=== PATIENT | male | born 1970 | race Caucasian/White ===

== ENCOUNTER 2017-09-06 16:07 | Emergency (ER) | payer MEDICAID ==
[~2017-09-06] VITALS: Ht 185.4 cm; Wt 104.0 kg
[~2017-09-06 16:07] MED LIST: ARIP20TA4 PO; HYDR50TA65 PO; MULT-1179 PO; OXCA600T PO; PALI234D IM
[2017-09-06] MEDS ORDERED: CLIN-80 PO (16:49)
[2017-09-06 17:01] VITALS: BP 135/65
== END 2017-09-06 17:00 | disposition home or self-care (01) ==
LOC: ER 16:07
DX: K04.7 Periapical abscess without sinus (principal); F17.200 Nicotine dependence, unspecified, uncomplicated; Z60.2 Problems related to living alone; Z79.899 Other long term (current) drug therapy
CPT/HCPCS: 99283

== ENCOUNTER 2019-03-06 20:37 | Emergency (ER) | payer MEDICAID ==
[~2019-03-06] VITALS: Ht 185.4 cm; Wt 95.0 kg
[~2019-03-06 20:37] MED LIST changes: +CLIN-96 PO; -OXCA600T PO; +OXCA600T9 PO
[2019-03-06 20:50] VITALS: BP 136/77
[2019-03-06] MEDS ORDERED: PENI500T2 PO (21:54)
[2019-03-06] MEDS ORDERED: IBUP-1984 PO (21:54)
== END 2019-03-06 22:11 | disposition home or self-care (01) ==
LOC: ER 20:43
DX: K04.7 Periapical abscess without sinus (principal); K02.9 Dental caries, unspecified; K03.81 Cracked tooth; F20.9 Schizophrenia, unspecified; Z60.2 Problems related to living alone; Z79.899 Other long term (current) drug therapy
CPT/HCPCS: 99283

== ENCOUNTER 2019-06-24 19:44 | Emergency (ER) | payer MEDICAID ==
[~2019-06-24] VITALS: Ht 185.4 cm; Wt 97.0 kg
[~2019-06-24 19:44] MED LIST changes: +CLIN-90 PO; -CLIN-96 PO
[2019-06-24] MEDS ORDERED: PENI250T2 PO (20:34)
[2019-06-24] MEDS ORDERED: NAPR-56 PO (20:34)
== END 2019-06-24 20:51 | disposition home or self-care (01) ==
LOC: ER 19:45
DX: K08.89 Other specified disorders of teeth and supporting structures (principal); K00.7 Teething syndrome; F20.9 Schizophrenia, unspecified; Z60.2 Problems related to living alone; Z79.899 Other long term (current) drug therapy
CPT/HCPCS: 99283

== ENCOUNTER 2022-07-14 13:52 | Emergency (ER) | payer MEDICAID ==
[~2022-07-14] VITALS: Ht 185.4 cm; Wt 95.0 kg
[~2022-07-14 13:52] MED LIST changes: -CLIN-90 PO; +CLIN-97 PO
[2022-07-14 13:57] VITALS: BP 138/83
[2022-07-14] MEDS ORDERED: AMOX-117 PO (17:02)
[2022-07-14] MEDS ORDERED: amox tr/potassium clavulanate 875/125mg TAB PO ONE (17:05)
== END 2022-07-14 17:36 | disposition home or self-care (01) ==
LOC: ER 13:52
DX: K04.7 Periapical abscess without sinus (principal); F20.9 Schizophrenia, unspecified
CPT/HCPCS: 99283

== ENCOUNTER 2022-08-09 14:46 | Emergency (ER) | payer MEDICAID ==
[~2022-08-09] VITALS: Ht 185.4 cm; Wt 95.0 kg
[2022-08-09 14:50] VITALS: BP 162/89
[2022-08-09] MEDS ORDERED: TETanus/Pertussis (Acell)/Diphther VAC/PF (Tdap-Adult) 0.5ml syringe IMVAC ONE (15:15)
[2022-08-09] MEDS ORDERED: CEPH-585 PO (15:47)
== END 2022-08-09 16:27 | disposition home or self-care (01) ==
LOC: ER 14:47
DX: S61.230A Puncture wound without foreign body of right index finger without damage to nail, initial encounter (principal); S61.031A Puncture wound without foreign body of right thumb without damage to nail, initial encounter; F20.9 Schizophrenia, unspecified; W54.0XXA Bitten by dog, initial encounter; Y93.89 Activity, other specified; Y92.89 Other specified places as the place of occurrence of the external cause; Y99.8 Other external cause status
CPT/HCPCS: 29130; 73140; 90471; 90715; 99283; A6222

== ENCOUNTER 2023-02-26 13:57 | Emergency (ER) | payer MEDICAID ==
[~2023-02-26] VITALS: Ht 185.4 cm; Wt 110.0 kg
[~2023-02-26 13:57] MED LIST changes: +CEPH-585 PO
[2023-02-26 14:16] VITALS: BP 137/75
== END 2023-02-26 14:52 | disposition home or self-care (01) ==
LOC: ER 13:58
DX: S60.221A Contusion of right hand, initial encounter (principal); F17.200 Nicotine dependence, unspecified, uncomplicated; F20.9 Schizophrenia, unspecified; Z79.899 Other long term (current) drug therapy; X58.XXXA Exposure to other specified factors, initial encounter; Y93.89 Activity, other specified; Y92.89 Other specified places as the place of occurrence of the external cause; Y99.8 Other external cause status
CPT/HCPCS: 73130; 99283; A6449

== ENCOUNTER 2023-06-07 13:46 | Emergency (ER) | payer MEDICAID ==
[~2023-06-07] VITALS: Ht 185.4 cm; Wt 89.2 kg
[2023-06-07 13:55] VITALS: BP 126/88; PULSE 87; RESP 15; TEMP 97.9; O2SAT 98
--- NOTE | 2023-06-07 14:29 | NUR ---
PT STATES, " I PICKED UP BAGS 5 YEARS AGO AND HURT KNEE." PT VERY ACTIVE, RUNS, EXERCISES, SQUATS, C/O LEFT KNEE PAIN, SLIGHTLY SWOLLEN.
[2023-06-07] MEDS ORDERED: NAPR-56 PO (15:13)
== END 2023-06-07 15:39 | disposition home or self-care (01) ==
LOC: ER 13:47
DX: S83.92XA Sprain of unspecified site of left knee, initial encounter (principal); S83.91XA Sprain of unspecified site of right knee, initial encounter; Z79.899 Other long term (current) drug therapy; Z79.2 Long term (current) use of antibiotics; W19.XXXA Unspecified fall, initial encounter; Y93.89 Activity, other specified; Y92.89 Other specified places as the place of occurrence of the external cause; Y99.8 Other external cause status
CPT/HCPCS: 99282

== ENCOUNTER 2023-06-27 22:01 | Emergency (ER) | payer MEDICAID ==
[~2023-06-27] VITALS: Ht 185.4 cm; Wt 97.6 kg
[~2023-06-27 22:01] MED LIST changes: +NAPR-56 PO
[2023-06-27 22:07] VITALS: BP 127/81; TEMP 97.4
[2023-06-27 22:34] VITALS: PULSE 79; RESP 19; O2SAT 97
== END 2023-06-28 02:13 | disposition home or self-care (01) ==
LOC: ER 22:02
DX: R22.42 Localized swelling, mass and lump, left lower limb (principal); M79.662 Pain in left lower leg; F17.200 Nicotine dependence, unspecified, uncomplicated; F12.90 Cannabis use, unspecified, uncomplicated; Z79.899 Other long term (current) drug therapy; Z79.2 Long term (current) use of antibiotics
CPT/HCPCS: 93971; 99284

== ENCOUNTER 2023-08-03 00:19 | Emergency (ER) | payer MEDICAID ==
[~2023-08-03 00:19] MED LIST changes: -NAPR-56 PO
== END 2023-08-03 00:43 | disposition left against medical advice (07) ==
LOC: ER 00:21
DX: R21 Rash and other nonspecific skin eruption (principal); Z53.21 Procedure and treatment not carried out due to patient leaving prior to being seen by health care provider
CPT/HCPCS: 93005

== ENCOUNTER 2023-11-14 13:10 | Emergency (ER) | payer MEDICAID ==
[~2023-11-14] VITALS: Ht 185.4 cm; Wt 99.8 kg
[~2023-11-14 13:10] MED LIST changes: -CEPH-585 PO
[2023-11-14] MEDS: CefTRIAXone 2gm/D5W 50ml BAG 50 ML IV ONE (14:49)
[2023-11-14 16:20] LABS: BASOPHILS % (AUTO) 0.5 % (0-1); EOSINOPHILS # (AUTO) 0.1 X10'3 (0-0.9); EOSINOPHILS % (AUTO) 0.7 % (0-6); HEMATOCRIT 39.2 % (42.0-52.0); HEMOGLOBIN 13.4 g/dl (14.0-17.9); LYMPHOCYTES # (AUTO) 1.2 X10'3 (1.1-4.8); LYMPHOCYTES % (AUTO) 12.7 % (21-51); MEAN CORPUSCULAR HEMOGLOBIN 29.4 PG (27.0-31.0); MEAN CORPUSCULAR HGB CONC 34.2 g/dL (33.0-36.5); MEAN CORPUSCULAR VOLUME 85.9 FL (78-98); MEAN PLATELET VOLUME 7.6 FL (7.4-10.4); MONOCYTES # (AUTO) 0.7 X10'3 (0-0.9); MONOCYTES % (AUTO) 7.4 % (2-12); NEUTROPHILS # (AUTO) 7.5 X10'3 (1.8-7.7); NEUTROPHILS % (AUTO) 78.7 % (42-75); PLATELET COUNT 244 X10'3 (140-440); RED BLOOD COUNT 4.56 X10'6 (4.70-6.10); RED CELL DISTRIBUTION WIDTH 14.9 % (11.5-14.5); WHITE BLOOD COUNT 9.5 X10'3 (4.5-11.0)
[2023-11-14 16:28] LABS: BILIRUBIN,URINE NEGATIVE (Neg); CLARITY,URINE CLEAR (Clear); COLOR,URINE STRAW (Yellow); GLUCOSE, URINE NEGATIVE (Neg); KETONES,URINE NEGATIVE (Neg); LEUKOCYTE ESTERASE ,URINE NEGATIVE (Neg); NITRITES, URINE NEGATIVE (Neg); OCCULT BLOOD,URINE NEGATIVE (Neg); PH,URINE 5.5 (4.8-8.0); PROTEIN,URINE NEGATIVE (Neg); UROBILINOGEN,URINE 0.2 E.U/dL (0.2-1.0)
[2023-11-14 16:30] LABS: ANION GAP 8 (8-16); BLOOD UREA NITROGEN 8 MG/DL (7-18); BUN/CREATININE RATIO 9.9 (10.0-20.0); CALCIUM 8.3 MG/DL (8.5-10.1); CHLORIDE 97 MMOL/L (99-107); CREATININE 0.81 MG/DL (0.60-1.10); GLUCOSE 108 MG/DL (70-104); MAGNESIUM 1.8 MG/DL (1.5-2.4); SODIUM 132 MMOL/L (135-145); TOTAL CARBON DIOXIDE 26.8 MMOL/L (24-32); eCRCL 122 ML/MIN; eGFR > 90 ML/MIN
[2023-11-14 16:32] LABS: UA COLLECTION TYPE VOIDED
[2023-11-14] MEDS: albuterol 2.5 MG/3 ML nebule NEB ONE (16:49)
[2023-11-14 16:57] VITALS: PULSE 68; PULSE 78; RESP 18; RESP 20; O2SAT 98
[2023-11-14] MEDS ORDERED: keflex PO (17:35)
[2023-11-14] MEDS ORDERED: CEPH500C2 PO (17:37)
[2023-11-14 17:54] VITALS: BP 121/81; PULSE 67; RESP 16; TEMP 98.2; O2SAT 99
== END 2023-11-14 17:56 | disposition home or self-care (01) ==
LOC: ER 13:11
DX: R22.31 Localized swelling, mass and lump, right upper limb (principal)
CPT/HCPCS: 36415; 71045; 73080; 73130; 80048; 81003; 83605; 83735; 84145; 85025; 87040; 94640; 96365; 96366; 99285; J0696; J3490; 94760

== ENCOUNTER 2023-12-15 16:04 | Emergency (ER) | payer MEDICAID ==
[~2023-12-15] VITALS: Ht 188 cm; Wt 104.5 kg
[~2023-12-15 16:04] MED LIST changes: +keflex PO
[2023-12-15 16:39] VITALS: BP 148/91; PULSE 79; RESP 18; TEMP 97.8; O2SAT 98
[2023-12-15 17:18] LABS: BASOPHILS # (AUTO) 0.1 X10'3 (0-0.2); BASOPHILS % (AUTO) 1.1 % (0-1); EOSINOPHILS # (AUTO) 0.2 X10'3 (0-0.9); EOSINOPHILS % (AUTO) 3.1 % (0-6); HEMATOCRIT 37.7 % (42.0-52.0); HEMOGLOBIN 12.8 g/dl (14.0-17.9); LYMPHOCYTES # (AUTO) 1.7 X10'3 (1.1-4.8); LYMPHOCYTES % (AUTO) 29.8 % (21-51); MEAN CORPUSCULAR HEMOGLOBIN 29.5 PG (27.0-31.0); MEAN CORPUSCULAR HGB CONC 34.1 g/dL (33.0-36.5); MEAN CORPUSCULAR VOLUME 86.6 FL (78-98); MEAN PLATELET VOLUME 7.1 FL (7.4-10.4); MONOCYTES # (AUTO) 0.5 X10'3 (0-0.9); MONOCYTES % (AUTO) 9.2 % (2-12); NEUTROPHILS # (AUTO) 3.2 X10'3 (1.8-7.7); NEUTROPHILS % (AUTO) 56.8 % (42-75); PLATELET COUNT 259 X10'3 (140-440); RED BLOOD COUNT 4.35 X10'6 (4.70-6.10); RED CELL DISTRIBUTION WIDTH 14.7 % (11.5-14.5); WHITE BLOOD COUNT 5.7 X10'3 (4.5-11.0)
[2023-12-15 17:30] LABS: ALBUMIN 3.7 G/DL (3.4-5.0); ANION GAP 6 (8-16); BLOOD UREA NITROGEN 7 MG/DL (7-18); BUN/CREATININE RATIO 8.4 (10.0-20.0); CALCIUM 8.5 MG/DL (8.5-10.1); CHLORIDE 93 MMOL/L (99-107); CREATININE 0.83 MG/DL (0.60-1.10); GLUCOSE 85 MG/DL (70-104); SODIUM 128 MMOL/L (135-145); TOTAL CARBON DIOXIDE 28.6 MMOL/L (24-32); eCRCL 122 ML/MIN; eGFR > 90 ML/MIN
== END 2023-12-15 21:18 | disposition left against medical advice (07) ==
LOC: ER 16:04
DX: R06.02 Shortness of breath (principal); Z53.21 Procedure and treatment not carried out due to patient leaving prior to being seen by health care provider
CPT/HCPCS: 36415; 71045; 80048; 84484; 85025; 93005; 99281

== ENCOUNTER 2024-01-23 21:20 | Emergency (ER) | payer MEDICAID ==
[~2024-01-23] VITALS: Ht 185.4 cm; Wt 100.0 kg
[2024-01-23 21:36] VITALS: BP 134/85; PULSE 73; RESP 16; TEMP 98.6; O2SAT 94
== END 2024-01-23 22:05 | disposition home or self-care (01) ==
LOC: ER 21:20
DX: F20.9 Schizophrenia, unspecified (principal); F12.90 Cannabis use, unspecified, uncomplicated; Z79.899 Other long term (current) drug therapy; Z79.2 Long term (current) use of antibiotics
CPT/HCPCS: 99281

== ENCOUNTER 2024-01-31 16:27 | Emergency (ER) | payer MEDICAID | END 2024-01-31 17:34 | disposition left against medical advice (07) | LOC: ER 16:28 | DX: Z00.00 Encounter for general adult medical examination without abnormal findings (principal); Z53.21 Procedure and treatment not carried out due to patient leaving prior to being seen by health care provider ==

== ENCOUNTER 2024-02-04 11:45 | Emergency (ER) | payer MEDICAID ==
[~2024-02-04] VITALS: Ht 185.4 cm; Wt 99.1 kg
[2024-02-04 14:29] VITALS: BP 155/80; PULSE 88; RESP 18; TEMP 98.1; O2SAT 97
== END 2024-02-04 14:34 | disposition home or self-care (01) ==
LOC: ER 11:45
DX: M79.671 Pain in right foot (principal); M79.672 Pain in left foot; F12.90 Cannabis use, unspecified, uncomplicated; Z79.899 Other long term (current) drug therapy; Z79.2 Long term (current) use of antibiotics
CPT/HCPCS: 99283

== ENCOUNTER 2024-03-10 08:12 | Emergency (ER) | payer MEDICAID ==
[~2024-03-10] VITALS: Ht 185.4 cm; Wt 100.5 kg
[2024-03-10 08:16] VITALS: BP 108/74; PULSE 75; RESP 18; TEMP 97.9; O2SAT 96
== END 2024-03-10 08:44 | disposition home or self-care (01) ==
LOC: ER 08:12
DX: R06.02 Shortness of breath (principal); F20.9 Schizophrenia, unspecified; F12.90 Cannabis use, unspecified, uncomplicated; Z60.2 Problems related to living alone; Z79.899 Other long term (current) drug therapy; Z79.2 Long term (current) use of antibiotics
CPT/HCPCS: 99283

== ENCOUNTER 2024-03-22 15:50 | Emergency (ER) | payer MEDICAID ==
[~2024-03-22] VITALS: Ht 188 cm; Wt 109.1 kg
[2024-03-22 15:58] VITALS: BP 145/74; PULSE 68; RESP 18; TEMP 97.8; O2SAT 97
== END 2024-03-22 17:29 | disposition left against medical advice (07) ==
LOC: ER 15:51
DX: R53.1 Weakness (principal); R07.0 Pain in throat; F10.129 Alcohol abuse with intoxication, unspecified; Z53.21 Procedure and treatment not carried out due to patient leaving prior to being seen by health care provider

== ENCOUNTER 2024-04-11 04:27 | Emergency (ER) | payer MEDICAID ==
[~2024-04-11] VITALS: Ht 185.4 cm; Wt 99.0 kg
[2024-04-11 04:28] VITALS: BP 112/79; PULSE 87; RESP 18; TEMP 98.7; O2SAT 99
== END 2024-04-11 07:04 | disposition left against medical advice (07) ==
LOC: ER 04:27
DX: M25.521 Pain in right elbow (principal); M25.561 Pain in right knee; Z53.21 Procedure and treatment not carried out due to patient leaving prior to being seen by health care provider

== ENCOUNTER 2024-06-27 20:58 | Emergency (ER) | payer MEDICAID ==
[~2024-06-27] VITALS: Ht 185.4 cm; Wt 101.5 kg
[2024-06-27 21:24] VITALS: BP 127/69; PULSE 79; RESP 16; TEMP 97.6; O2SAT 94
== END 2024-06-27 23:11 | disposition left against medical advice (07) ==
LOC: ER 20:59
DX: M79.676 Pain in unspecified toe(s) (principal); Z53.21 Procedure and treatment not carried out due to patient leaving prior to being seen by health care provider

== ENCOUNTER 2024-08-30 08:50 | Emergency (ER) | payer MEDICAID ==
[~2024-08-30] VITALS: Ht 185.4 cm; Wt 101.2 kg
[2024-08-30 08:59] VITALS: BP 106/52; PULSE 77; TEMP 99.9; O2SAT 97
[2024-08-30 09:15] VITALS: RESP 18
[2024-08-30] MEDS ORDERED: GUAI1TBM19 PO (11:13)
[2024-08-30] MEDS ORDERED: ACET-3174 PO (11:13)
[2024-08-30] MEDS ORDERED: IBUP-1986 PO (11:13)
== END 2024-08-30 11:17 | disposition home or self-care (01) ==
LOC: ER 08:51
DX: J10.1 Influenza due to other identified influenza virus with other respiratory manifestations (principal); F17.200 Nicotine dependence, unspecified, uncomplicated; F20.9 Schizophrenia, unspecified; F12.90 Cannabis use, unspecified, uncomplicated; Z79.899 Other long term (current) drug therapy; Z60.2 Problems related to living alone; Z20.822 Contact with and (suspected) exposure to COVID-19
CPT/HCPCS: 36415; 87502; 87503; 87811; 99283

== ENCOUNTER 2025-04-08 23:18 | Emergency (ER) | payer MEDICAID ==
[~2025-04-08] VITALS: Ht 185.4 cm; Wt 97.3 kg
[~2025-04-08 23:18] MED LIST changes: +ACET-3174 PO; +CLIN-224 PO; -CLIN-97 PO; +GUAI1TBM19 PO; +IBUP-1986 PO
[2025-04-08 23:21] VITALS: BP 119/86; PULSE 97; RESP 20; TEMP 97.7; O2SAT 99
[2025-04-08] MEDS ORDERED: SULF1TAB49 PO (23:35)
--- NOTE | 2025-04-08 23:37 | Physician Documentation ---
History of Present Illness ~ Chief Complaint: Rash Stated Complaint: BUG BITES Time Seen by MD: 23:32 Primary Medical Doctor: [facility] Patient is seen today with complaints of skin lesion that is painful and draining in his gluteal cleft. Patient states this started a few days ago. He denies any fevers or chills in his no other concern or complaint at this time. Medication Reconciliation Allergies: Coded Allergies: No Known Allergies (Unverified , 02/13/25) Scheduled Aripiprazole (Abilify), 1 TAB PO DAILY, (Reported) Clindamycin HCL* (Clindamycin HCL*), 1 CAP PO Q6H Guaifenesin/Dextromethorphan (Mucinex Dm ER 1,200-60 mg Tab), 1 TAB PO Q12H Ibuprofen (Ibuprofen), 1 TAB PO Q8H Multivitamins,Therapeutic* (Theragran-M*), 1 EACH PO DAILY, (Reported) Oxcarbazepine (Oxcarbazepine), 1 TAB PO BID, (Reported) Paliperidone Palmitate (Invega Sustenna), 1 SYR IM Q28D, (Reported) Scheduled PRN Acetaminophen (Tylenol 8 Hour), 1 TAB PO TID PRN PRN for abdominal cramps Hydroxyzine HCl (Hydroxyzine HCl), 0.5 TAB PO BID PRN for anxiety, (Reported) Hydroxyzine HCl (Hydroxyzine HCl), 1 TAB PO HS PRN for sleep, (Reported) Miscellaneous Medications [keflex], 500 MG PO Past Medical History Past Medical History: Extremity Fracture, *PSYCH*, Schizophrenia Past Surgical History: no surgical history Alcohol Use: None Drug Use: marijuana Lives with: Alone Lives In: Home Review of Systems Constitutional: Denies: chills, fever, weakness Eyes: Denies: pain, blurred vision ENT: Denies: ear pain, nose pain, throat pain, mouth pain Respiratory: Denies: cough, shortness of breath Cardiovascular: Denies: chest pain, palpitations Gastrointestinal: Denies: abdominal pain, nausea, vomiting Genitourinary: Denies: burning, dysuria Male Genitalia: Denies: penile discharge, testicular pain Neurological: Denies: headache, dizziness Musculoskeletal: Denies: pain, swelling Integumentary: Denies: rash, lesions Allergic/Immunologic: Denies: hives, itching Hematologic/Lymphatic: Denies: no symptoms reported Psychiatric: Denies: depression, anxiety Physical Exam Vital Signs: Temperature: 97.7, Source: Temporal, Heart Rate: 97, Respiratory Rate: 20, BP: 119/86, Pulse Oximetry: 99, Weight: 97.300 Oxygen Flow Rate: 0 Physical Exam General: Awake and Alert, no acute distress. HEENT: Conjunctiva pink, Sclera clear, Mucus Membranes moist. Neck: Supple without masses and tenderness. Resp: Unlabored. Lungs clear to auscultation bilaterally. Heart: Regular Rate and rhythm, normal S1 and S2 without murmur, rub or gallop. Extremities: No cyanosis,clubbing or edema. Skin: Patient on exam has draining abscess with surrounding erythema and induration at the gluteal cleft at the apex but does not appear consistent with pilonidal cyst. Sat abscess I guess as just inferior to the apex of the gluteal cleft in his on the right side of the buttocks. Progress Results/Orders Results/Orders Vital Signs 04/08/25 23:21 Temp 97.7 Pulse 97 Resp 20 B/P (MAP) 119/86 Pulse Ox 99 O2 Flow Rate 0 Medical Decision Making Findings Patient is seen today with complaints of skin lesion that is painful and draining in his gluteal cleft. Patient states this started a few days ago. He denies any fevers or chills in his no other concern or complaint at this time. Prescription of Bactrim DS sent to patient's pharmacy. Patient will follow up with primary care in 3-5 days if no better as needed sooner. Return to ED with any worsening, concerning or changing symptoms. Departure Disposition: 01 HOME / SELF CARE / HOMELESS Impression: Primary Impression: Skin abscess Qualified Codes: L02.31 - Cutaneous abscess of buttock Condition: Stable Discharge Instructions: Abscess, Care After Additional Instructions: Prescription of Bactrim DS sent to patient's pharmacy. Patient will follow up with primary care in 3-5 days if no better as needed sooner. Return to ED with any worsening, concerning or changing symptoms. Referrals: NO PRIMARY CARE PROVIDER (PCP) Prescriptions Sulfamethoxazole/Trimethoprim (Bactrim Ds Tablet) 800 Mg-160 Mg Tablet 1 TAB PO Q12H for 10 Days, #20 TAB Prov: CARMELITA WILLIAMSON 04/08/25 Signature Scribe Signature: No scribe Attestation: No scribe CARMELITA WILLIAMSON [facility] Apr 08, 2025 23:37
== END 2025-04-08 23:59 | disposition home or self-care (01) ==
LOC: ER 23:19
DX: L02.31 Cutaneous abscess of buttock (principal); F20.9 Schizophrenia, unspecified; Z79.899 Other long term (current) drug therapy; F12.90 Cannabis use, unspecified, uncomplicated; Z60.2 Problems related to living alone
CPT/HCPCS: 99283

== ENCOUNTER 2025-06-20 13:06 | Emergency (ER) | payer MEDICAID ==
[~2025-06-20] VITALS: Ht 172.7 cm; Wt 97.5 kg
--- NOTE | 2025-06-20 13:41 | Physician Documentation ---
History of Present Illness ~ Chief Complaint: Abscess Stated Complaint: ABCESS Time Seen by MD: 13:38 Primary Medical Doctor: Celeste Shahid [facility] 54-year-old male presents to the ED complaining of wrist pain secondary to a suspected abscess. Patient reports using meth today. The abscess that he complains of is currently draining he is not complaining of any fevers or nausea vomiting Tetanus Within 5 Years: No Medication Reconciliation Allergies: Coded Allergies: No Known Allergies (Unverified , 06/20/25) Scheduled Aripiprazole (Abilify), 1 TAB PO DAILY, (Reported) Clindamycin HCL* (Clindamycin HCL*), 1 CAP PO Q6H Guaifenesin/Dextromethorphan (Mucinex Dm ER 1,200-60 mg Tab), 1 TAB PO Q12H Ibuprofen (Ibuprofen), 1 TAB PO Q8H Multivitamins,Therapeutic* (Theragran-M*), 1 EACH PO DAILY, (Reported) Oxcarbazepine (Oxcarbazepine), 1 TAB PO BID, (Reported) Paliperidone Palmitate (Invega Sustenna), 1 SYR IM Q28D, (Reported) Sulfamethoxazole/Trimethoprim (Septra Ds Tab), 1 TAB PO Q12H Scheduled PRN Acetaminophen (Tylenol 8 Hour), 1 TAB PO TID PRN PRN for abdominal cramps Hydroxyzine HCl (Hydroxyzine HCl), 0.5 TAB PO BID PRN for anxiety, (Reported) Hydroxyzine HCl (Hydroxyzine HCl), 1 TAB PO HS PRN for sleep, (Reported) Miscellaneous Medications [keflex], 500 MG PO Past Medical History Past Medical History: Extremity Fracture, *PSYCH*, Schizophrenia Past Surgical History: no surgical history Alcohol Use: None Drug Use: marijuana Lives with: Alone Lives In: Home Review of Systems All Other Systems at this time: Reviewed and Negative ROS As stated above in the HPI, otherwise all systems are reviewed and negative. Physical Exam Vital Signs: Temperature: 98.5, Source: Temporal, Heart Rate: 95, Respiratory Rate: 16, BP: 107/77, Pulse Oximetry: 98, Weight: 97.500 Oxygen Flow Rate: 0 Physical Exam General: Alert, no apparent distress. Extremities: Normal range of motion, no deformity. 3-4 cm abscess that is currently draining with surrounding erythema Neurologic: Oriented x4. Psychiatric: Normal mood and affect. Skin: Normal color, warm and dry. No edema, no ecchymosis. Progress Results/Orders Results/Orders Completed Orders - TRAVIS GRUBER NP Ceftriaxone Im Kit W/Lidocaine (Rocephin (06/20/25 13:45) Medications Received in ER Medications (Trade) Dose Ordered Sig/Rubin Route PRN Reason Start Time Stop Time Status Last Admin Dose Admin (Rocephin 1GM IM kit (w/lidocaine diluent)) 1,000 mg ONCE ONCE IM 06/20/25 13:45 06/20/25 13:46 DC 06/20/25 13:57 1,000 MG Vital Signs 06/20/25 06/20/25 13:11 14:08 Temp 98.5 98.9 Pulse 95 94 Resp 16 18 B/P (MAP) 107/77 117/68 Pulse Ox 98 99 O2 Flow Rate 0 Medical Decision Making Additional information obtaine: old records Findings Patient does have a notable abscess on his right forearm however it is currently draining therefore I opted not I and D at this time. We will place him on oral antibiotics and give him a starting dose of ceftriaxone in the ED Differential Dx:Considerations: Include: Abscess, Bacteremia, Cellulitis, Erysipelas, Felon, Gas gangrene, Hidrademitis suppurativa, Impetigo, Lymphangitis, Osteromyelitis, Paronychia, Septicemia, Other Departure Disposition: 01 HOME / SELF CARE / HOMELESS Impression: Primary Impression: Abscess Condition: Stable Discharge Instructions: Abscess, Care After Referrals: NO PRIMARY CARE PROVIDER (PCP) Prescriptions Sulfamethoxazole/Trimethoprim (Septra Ds Tab) 800 Mg/160 Mg Tablet 1 TAB PO Q12H for 10 Days, #20 TAB Prov: TRAVIS GRUBER NP 06/20/25 Signature Scribe Signature: h Attestation: Scribed for Travis Gruber Np by Travis Keys NP . 06/20/25 18:04 TRAVIS GRUBER NP Jun 20, 2025 13:41
[2025-06-20] MEDS ORDERED: SULF1TAB45 PO (13:46)
[2025-06-20] MEDS: CefTRIAXone 1000mg IM Kit (w/lidocaine diluent) IM ONE (13:57)
[2025-06-20 14:08] VITALS: BP 117/68; PULSE 94; RESP 18; TEMP 98.9; O2SAT 99
== END 2025-06-20 14:10 | disposition home or self-care (01) ==
LOC: ER 13:06
DX: L02.511 Cutaneous abscess of right hand (principal); F20.9 Schizophrenia, unspecified; F15.90 Other stimulant use, unspecified, uncomplicated; Z79.899 Other long term (current) drug therapy
CPT/HCPCS: 96372; 99283; J0696

== ENCOUNTER 2025-08-07 22:19 | Emergency (ER) | payer MEDICAID ==
[~2025-08-07] VITALS: Ht 185.4 cm; Wt 108.0 kg
[2025-08-07 22:33] VITALS: BP 138/101; PULSE 125; TEMP 98.5; O2SAT 95
--- NOTE | 2025-08-07 23:12 | Physician Documentation ---
History of Present Illness ~ General Chief Complaint: See Chief Complaint Stated Complaint: GEN ILLNESS Time Seen by MD: 22:51 OK to notify your PCP?: Yes Primary Medical Doctor: Celeste Shahid Source: patient Mode of Arrival: POV Exam Limitations: no limitations History of Present Illness Initial Comments Patient is a 54 year old male presenting to the emergency department stating that he used alcohol and methamphetamine today and he is now in need of a ride home as it is "too cold and he will not make it". He feels shaky and is experiencing pain to bilateral lower extremities. His last drink was today at 1600. He reiterates multiple times that he "really needs a ride". Patient denies any other associated symptoms. Patient denies any other alleviating or exacerbating factors at this time. Medication Reconciliation Allergies: Coded Allergies: Sulfa (Sulfonamide Antibiotics) (Verified Allergy, Unknown, 08/07/25) Scheduled Aripiprazole (Abilify), 1 TAB PO DAILY, (Reported) Clindamycin HCL* (Clindamycin HCL*), 1 CAP PO Q6H Guaifenesin/Dextromethorphan (Mucinex Dm ER 1,200-60 mg Tab), 1 TAB PO Q12H Ibuprofen (Ibuprofen), 1 TAB PO Q8H Multivitamins,Therapeutic* (Theragran-M*), 1 EACH PO DAILY, (Reported) Oxcarbazepine (Oxcarbazepine), 1 TAB PO BID, (Reported) Paliperidone Palmitate (Invega Sustenna), 1 SYR IM Q28D, (Reported) Scheduled PRN Acetaminophen (Tylenol 8 Hour), 1 TAB PO TID PRN PRN for abdominal cramps Chlordiazepoxide Hcl (Librium), 25 MG PO Q8H PRN for alcohol withdrawal Hydroxyzine HCl (Hydroxyzine HCl), 0.5 TAB PO BID PRN for anxiety, (Reported) Hydroxyzine HCl (Hydroxyzine HCl), 1 TAB PO HS PRN for sleep, (Reported) Miscellaneous Medications [keflex], 500 MG PO Past Medical History Past Medical History: Extremity Fracture, *PSYCH*, Schizophrenia Past Surgical History: no surgical history Alcohol Use: None Drug Use: marijuana Lives with: Alone Lives In: Home Review of Systems ROS Constitutional: Negative for fever and chills. HENT: Negative for sore throat and rhinorrhea. Eyes:Negative for pain and redness. Respiratory: Negative for cough and shortness of breath. Cardiovascular: Negative for chest pain and palpitations. Gastrointestinal: Negative for nausea and vomiting. Genitourinary: Negative for dysuria and hematuria. Musculoskeletal: Negative for acute back pain and acute neck pain. Skin: Negative for rash and pruritus. Neurological: Negative for acute numbness or weakness. Physical Exam Physical Exam Vital Signs: RN Vital Signs have been reviewed: Yes, Temperature: 98.5, Source: Oral, Heart Rate: 125, Respiratory Rate: 22, BP: 138/101, Pulse Oximetry: 95, Weight: 108.000 Pulse Oximetry Reflects: adequate oxygenation Physical Exam General Appearance: Tangential, odd affect. 1+ anxious. Head: No Trauma. Scalp Normal Eyes: Lids normal, conjunctiva normal ENT: Mucous membranes normal, facial bones normal, lips normal, oropharynx normal Neck: Normal active FROM, non-tender with ROM, no meningeal signs, No JVD Back: Normal active FROM, non-tender with ROM, no CVAT Resp: Normal resp rate, normal flow, lungs clear to auscultation, no resp distress, no retractions Heart: Reg rhythm, no murmur Abd: Soft, non-tender, no guarding, no rebound, no mass Musc/Skel: No chest wall tenderness, Normal ROM UE's and LE's, No acute bone/joint abnormality or tenderness Skin: Normal color, no petechia/purpura, no rash Extremities: No edema Neuro: Motor 5/5 & Symmetric Bilat, CN 2-12 grossly intact and symmetric bilat. Oriented x4, speech normal. Psych: Mood & Affect: Tangential, odd affect. 1+ anxious. Progress Results/Orders Results/Orders Completed Orders - ROSA MAHAN MD Chlordiazepoxide Capsule (Librium Capsul (08/07/25 23:40) Vital Signs 08/07/25 08/08/25 22:33 00:00 Temp 98.5 Pulse 125 Resp 22 15 B/P (MAP) 138/101 Pulse Ox 95 Medical Decision Making Additional information obtaine: other Findings Other Differential Diagnosis ER COURSE -I have reviewed the triage note. History obtained from pt -All Labs, if applicable, independently reviewed by me I checked in EMR for old Records Admission considered, but hemodynamically stable with no emergent issue Laboratory and radiology testing considered but deemed not necessary during this current emergency department visit: Urine toxicology Treatment/therapeutic interventions considered but deemed not necessary during this emergency department visit: IV antibiotics Repeat Evaluation: Vital signs stable no distress Additional REPEAT EVALUATION: Results and plan of care discussed with patient, patient understands and is agreeable to plan and disposition. Limited: (2 points from category 1 or one discussion with independent historian). Moderate: one of the following (3 points from category 1, or independent in terpretations of tests performed by another physician/QHP: (ct,ecg,rad alexander,rhythm strip,or comparing xray to prior), or discussion of tests or management with other professionals (not including [facility] ER doc/PA or family members.) High: (2 of 3 from : category 1 (3 points), independent interpretation of tests performed by another physician/QHP, and discussion of tests or management). Prior [facility] ER notes reviewed: Category 1: Number of Tests ordered or reviewed: [] Number of Independent Historians: 1. Non [facility] ER notes reviewed: None. Category 2: I independently interpreted the [] Category 3: Discussion with other professionals: [] [employer] Problems related to: [ ] Challenges with access to Primary Care or Outpatient Speciality Care [X] Psychosocial circumstances such as mental health issues [X] Social environment: such as violence or substance abuse [X] Housing and economic circumstances: such as homelessness [ ] Employment and unemployment: such as recently loss of employment [ ] Occupational exposures or injuries: [ ] Accessing ED outside of normal PCP hours [ ] Language barrier: [ ] Primary support group, including family circumstances: Portions of this chart may have been created with [employer] oftware. Occasional wrong-word or sound-alike substitutions may have occurred due to the inherent limitations of voice recognition software. Please read the chart carefully and recognize, using context, where these substitutions have occurred. Departure Disposition: 01 HOME / SELF CARE / HOMELESS Impression: Primary Impression: Alcohol withdrawal Additional Impression: Methamphetamine abuse Condition: Stable Discharge Instructions: Alcohol Withdrawal Syndrome, [id number] Referrals: NO PRIMARY CARE PROVIDER (PCP) Prescriptions Chlordiazepoxide Hcl (Librium) 25 Mg Capsule 25 MG PO Q8H PRN for alcohol withdrawal for 5 Days, #20 CAP 0 Refills Prov: ROSA MAHAN MD 08/07/25 Comments Follow up with your primary care physician in 2-3 days for further evaluation Education Educated: Patient Educated regarding: diagnosis, treatment Signature Scribe Signature: Scribed for Rosa Mahan MD by Claudia Tran . 08/07/25 23:19 Attestation: The note accurately reflects work and decisions made by me.ROSA Mendoza MD, MD Aug 07, 2025 23:12 CLAUDIA SAUER Aug 07, 2025 23:20
[2025-08-07] MEDS ORDERED: CHLO25CA10 PO (23:45)
[2025-08-08] VITALS: RESP 15
== END 2025-08-08 00:07 | disposition home or self-care (01) ==
LOC: ER 22:20
DX: F10.239 Alcohol dependence with withdrawal, unspecified (principal); F15.10 Other stimulant abuse, uncomplicated; F12.90 Cannabis use, unspecified, uncomplicated; F20.9 Schizophrenia, unspecified; Z56.0 Unemployment, unspecified; Z59.00 Homelessness unspecified; Z88.2 Allergy status to sulfonamides; Z79.899 Other long term (current) drug therapy; Y90.9 Presence of alcohol in blood, level not specified; Z60.2 Problems related to living alone
CPT/HCPCS: 99283

== ENCOUNTER 2025-08-14 09:05 | Emergency (ER) | payer MEDICAID ==
[~2025-08-14] VITALS: Ht 185.4 cm; Wt 106.8 kg
[~2025-08-14 09:05] MED LIST changes: +CHLO25CA10 PO
[2025-08-14] MEDS ORDERED: DOXY150T9 PO (09:30)
--- NOTE | 2025-08-14 09:31 | Physician Documentation ---
History of Present Illness ~ Chief Complaint: Abscess Stated Complaint: ABCESS ON NECK Time Seen by MD: 09:25 Primary Medical Doctor: Celeste Shahid Source: patient Mode of Arrival: POV, Ambulatory Exam Limitations: no limitations HPI 54-year-old male with small abscess to the right side of his neck that is been draining for 2 days. No fevers or other associated symptoms. Endorses meth use Tetanus Within 5 Years: Yes Medication Reconciliation Allergies: Coded Allergies: Sulfa (Sulfonamide Antibiotics) (Verified Allergy, Unknown, 08/14/25) Scheduled Aripiprazole (Abilify), 1 TAB PO DAILY, (Reported) Clindamycin HCL* (Clindamycin HCL*), 1 CAP PO Q6H Guaifenesin/Dextromethorphan (Mucinex Dm ER 1,200-60 mg Tab), 1 TAB PO Q12H Ibuprofen (Ibuprofen), 1 TAB PO Q8H Multivitamins,Therapeutic* (Theragran-M*), 1 EACH PO DAILY, (Reported) Oxcarbazepine (Oxcarbazepine), 1 TAB PO BID, (Reported) Paliperidone Palmitate (Invega Sustenna), 1 SYR IM Q28D, (Reported) Scheduled PRN Acetaminophen (Tylenol 8 Hour), 1 TAB PO TID PRN PRN for abdominal cramps Chlordiazepoxide Hcl (Librium), 25 MG PO Q8H PRN for alcohol withdrawal Hydroxyzine HCl (Hydroxyzine HCl), 0.5 TAB PO BID PRN for anxiety, (Reported) Hydroxyzine HCl (Hydroxyzine HCl), 1 TAB PO HS PRN for sleep, (Reported) Miscellaneous Medications [keflex], 500 MG PO Past Medical History Past Medical History: Extremity Fracture, *PSYCH*, Schizophrenia Past Surgical History: no surgical history Alcohol Use: None Drug Use: marijuana, methamphetamine Lives with: Alone Lives In: Home Review of Systems All Other Systems at this time: Reviewed and Negative Integumentary: Reports: see HPI Physical Exam Vital Signs: RN Vital Signs have been reviewed: Yes, Temperature: 98.0, Source: Temporal, Heart Rate: 80, Respiratory Rate: 16, BP: 143/92, Pulse Oximetry: 98, Weight: 106.800 Oxygen Flow Rate: 0 Physical Exam General: Alert, no apparent distress. HEENT: moist mucous membranes. Neck: Full range of motion. 1-1/2 cm pustule with drainage no surrounding erythema or streaking. Compartments soft. Respiratory: No respiratory distress speaking in full sentences Chest: No accessory muscle use. Cardiovascular: Appears well perfused Neurologic: Oriented x4. Psychiatric: Normal mood and affect. Skin: Normal color, warm and dry. No edema, no ecchymosis. Progress Results/Orders Results/Orders Vital Signs 08/14/25 09:09 Temp 98.0 Pulse 80 Resp 16 B/P (MAP) 143/92 Pulse Ox 98 O2 Flow Rate 0 Medical Decision Making Additional information obtaine: N/A Findings Pustule to the side of his neck. Compartments soft no swelling no past midway swelling for Paul's. Vital signs reassuring. Topical antibiotics as well as oral antibiotics Differential Dx:Considerations: Include: Abscess, Cellulitis, Other Departure Time of Disposition: : Disposition: HOME / SELF CARE / HOMELESS Impression: Primary Impression: Abscess Condition: Stable Discharge Instructions: Abscess, Care After Additional Instructions: Antibiotics and keep dressing clean and dry. Monitor for any new or worsening symptoms feel free to return to the ER Referrals: NO PRIMARY CARE PROVIDER (PCP) Prescriptions Doxycycline Hyclate (DOXYCYCLINE HYCLATE) 150 Mg Tablet. 1 TAB PO Q12H for 10 Days, #20 TAB Prov: NEERU HENDRICKS NP 08/14/25 Education Educated: Patient Educated regarding: diagnosis, treatment, need for follow up Signature Scribe Signature: No scribe Attestation: The note accurately reflects work and decisions made by me.Neeru Hendricks - FOOD EQUIPMENT SERVICE TECHNICIAN 08/14/25 09:31 NEERU HENDRICKS NP Aug 14, 2025 09:31
[2025-08-14] MEDS: bacitracin 15gm ointment TP ONE (09:56)
[2025-08-14 10:04] VITALS: BP 146/81; PULSE 89; RESP 16; TEMP 98; O2SAT 98
== END 2025-08-14 10:00 | disposition home or self-care (01) ==
LOC: ER 09:05
DX: L02.11 Cutaneous abscess of neck (principal); F20.9 Schizophrenia, unspecified; F12.90 Cannabis use, unspecified, uncomplicated; F15.90 Other stimulant use, unspecified, uncomplicated; Z88.2 Allergy status to sulfonamides; Z79.899 Other long term (current) drug therapy; Z60.2 Problems related to living alone
CPT/HCPCS: 99283